=== PATIENT | female | born 2000 | race Two or more races ===

== ENCOUNTER 2024-07-14 20:42 | Emergency (ER) | payer OTHER ==
[~2024-07-14] VITALS: Ht 165.1 cm; Wt 109.6 kg
[2024-07-15 00:15] VITALS: BP 124/73; TEMP 97.2
[2024-07-15 00:50] VITALS: PULSE 80; RESP 16; O2SAT 100
[2024-07-15] MEDS: IBUPROFEN 800 MG TAB PO ONE (00:50)
== END 2024-07-15 01:11 | disposition home or self-care (01) ==
LOC: ER 20:42
DX: S61.307A Unspecified open wound of left little finger with damage to nail, initial encounter (principal); W23.0XXA Caught, crushed, jammed, or pinched between moving objects, initial encounter; Y93.89 Activity, other specified; Y92.89 Other specified places as the place of occurrence of the external cause; Y99.0 Civilian activity done for income or pay
CPT/HCPCS: 11730; 73140

== ENCOUNTER → 2025-05-25 | Outpatient (CLI) | payer OTHER ==
[2025-05-25 07:48] LABS: Hemoglobin 12.9 g/dL (12.2-16.2); Nucleated Red Blood Cells % 0.0 %
[2025-05-25 07:49] LABS: Hematocrit 39.6 % (36.0-46.0); Mean Corpuscular Hemoglobin 25.3 pg (28.0-32.0); Mean Corpuscular Volume 77.5 fL (80.0-100.0)
[2025-05-25 08:22] LABS: Triglycerides 103 mg/dL (< 150); Urine Protein, UAD Negative (Negative)
[2025-05-25 08:24] LABS: Cholesterol 95 mg/dL (< 200)
[2025-05-25 08:35] LABS: HDL Cholesterol 37 mg/dL (40-59)
[2025-05-25 12:21] LABS: Follicle Stimulating Hormone 2.3 IU/L (SEE BELOW)
== END | disposition home or self-care (01) ==
LOC: LAB 07:13
PROVIDERS: ATTEND Family Medicine
DX: E78.6 Lipoprotein deficiency (principal); K21.9 Gastro-esophageal reflux disease without esophagitis; D72.829 Elevated white blood cell count, unspecified; R73.03 Prediabetes
CPT/HCPCS: 36415; 80061; 81001; 82670; 83001; 83002; 83036; 84144; 84146; 85025